=== PATIENT | male | born 1990 | race Caucasian/White ===

== ENCOUNTER 2025-04-14 12:33 | Emergency (ER) | payer BC ==
[2025-04-14] MEDS: Diphtheria,Pertussis(Acell),Tetanus Vaccine 0.5 ML Syringe IM ONE (14:32)
== END 2025-04-14 14:35 | disposition home or self-care (01) ==
LOC: JD.ED 12:33
DX: S31.111A Laceration without foreign body of abdominal wall, left upper quadrant without penetration into peritoneal cavity, initial encounter (principal); J45.909 Unspecified asthma, uncomplicated; Z23 Encounter for immunization; W26.0XXA Contact with knife, initial encounter
CPT/HCPCS: 12002; 90471; 90715; 99282-25